=== PATIENT | male | born 1985 | race Caucasian/White ===

== ENCOUNTER 2024-10-22 12:51 | Emergency (ER) | payer OTHER ==
[~2024-10-22] VITALS: Ht 172.7 cm; Wt 109.1 kg
[2024-10-22 13:12] VITALS: BP 124/79; PULSE 80; RESP 16; TEMP 98; O2SAT 98
[2024-10-22] MEDS: ACETAMINOPHEN 500 MG TABLET PO ONE (15:52)
[2024-10-22] MEDS: PERTUSS(ACELL),DIPH,TET/PF 0.5 ML SYRINGE [ADULT] IM. ONE (15:52)
== END 2024-10-22 16:06 ==
LOC: EMS 12:53
DX: S00.83XA Contusion of other part of head, initial encounter (principal); S40.811A Abrasion of right upper arm, initial encounter; K21.9 Gastro-esophageal reflux disease without esophagitis; W01.198A Fall on same level from slipping, tripping and stumbling with subsequent striking against other object, initial encounter; Y93.02 Activity, running; Y92.89 Other specified places as the place of occurrence of the external cause; Y99.8 Other external cause status
CPT/HCPCS: 70450; 70486; 72125; 90471; 90715; 99285